=== PATIENT | female | born 1975 | race Caucasian/White ===

== ENCOUNTER 2019-01-11 09:46 | Outpatient (CLI) | payer BC ==
--- NOTE | 2019-01-11 10:51 | MMO ---
Bilateral MAMMO Bilat Diag [facility]. CLINICAL HISTORY: Patient is 43 years old and is seen for additional evaluation requested at current screening. The patient has no family history of breast cancer. The patient has no personal history of cancer. VIEWS: The views performed were: bilateral craniocaudal spot compression with tomosynthesis; bilateral mediolateral oblique spot compression with tomosynthesis; and bilateral mediolateral with tomosynthesis. FILMS COMPARED: The present examination has been compared to prior imaging studies performed at [facility] on 01/03/2019, and at [facility] [place] on 01/11/2019. This study has been interpreted with the assistance of computer-aided detection. MAMMOGRAM FINDINGS: There are scattered fibroglandular densities. Finding 1: The asymmetry seen at screening mammography does not persist at additional imaging, compatible with superimposed tissue. Finding 2: There is an oval mass measuring 8 millimeters with circumscribed margins seen in the middle region of the right breast at 12 o'clock. The mass was shown to be a cyst on ultrasound. There are no suspicious masses, suspicious calcifications, or new areas of architectural distortion. IMPRESSION: THERE IS NO MAMMOGRAPHIC EVIDENCE OF MALIGNANCY. A ROUTINE FOLLOW-UP MAMMOGRAM IN 1 YEAR IS RECOMMENDED. THE RESULTS OF THIS EXAM WERE SENT TO THE PATIENT. ACR BI-RADS Category 2 - Benign finding MAMMOGRAPHY NOTE: 1. A negative mammogram report should not delay a biopsy if a dominant of clinically suspicious mass is present. 2. Approximately 10% to 15% of breast cancers are not detected by mammography. 3. Adenosis and dense breasts may obscure an underlying neoplasm. Reported by: JEANNIE ARZOLA MD Electonically Signed: [id number]
--- NOTE | 2019-01-11 12:16 | ULT ---
LIMITED RIGHT BREAST ULTRASOUND: DATE: 01/11/19 PROVIDED CLINICAL HISTORY: Abnormal mammogram. FINDINGS: Limited sonographic interrogation performed of the right breast in the region of mammographic concern . There is a 7 mm simple cyst present at the 12 o'clock position, correlating with the mammogram find ing. No concerning sonographic findings are evident. IMPRESSION: BI-RADS Category 2 - Benign findings. Return to annual screening mammography recommended. POS: OFF
== END 2019-01-11 09:47 | disposition home or self-care (01) ==
LOC: BICMAMMO 09:46
PROVIDERS: ATTEND Obstetrics & Gynecology
DX: N63.10 Unspecified lump in the right breast, unspecified quadrant (principal)
CPT/HCPCS: 77066; G0279

== ENCOUNTER 2021-10-27 08:35 | Outpatient (CLI) | payer BC ==
[2021-10-27 10:23] LABS: #Basophils 0.1 10x3/uL (0.0-0.2); #Eosinphils 0.5 10x3/uL (0.0-0.5); #Monocytes 0.5 10x3/uL (0.0-1.1); #Neutrophils 4.5 10x3/uL (1.5-8.4); %Basophils 0.8 % (0.0-2.0); %Eosinophils 6.6 % (0.0-6.0); %Lymphocytes 25.6 % (18.0-47.0); %Monocytes 6.8 % (0.0-10.0); %Neutrophils 59.8 % (40.0-75.0); Hemoglobin 14.2 g/dL (12.0-15.5); Mean Corpuscular HGB CONC 34.3 g/dL (32.0-36.0); Mean Corpuscular Hemoglobin 30.7 pg (27.0-33.0); Mean Corpuscular Volume 89.6 fl (81.6-98.3); Mean Platelet Volume 10.1 fl (7.4-10.4); Platelet Count 301 10x3/uL (150-450); RBC Distribution Width 12.7 % (11.5-14.5); Red Blood Cell (RBC) Count 4.62 10x6/uL (3.90-5.03); White Blood Cell (WBC) Count 7.5 10x3/uL (3.5-10.5)
[2021-10-27 10:49] LABS: ALT (SGPT) 26 U/L (8-55); AST (SGOT) 22 U/L (5-34); Albumin 4.6 g/dL (3.5-5.0); Alkaline Phosphatase 93 U/L (40-110); Anion Gap 12 mmol/L (10-20); BUN (Urea Nitrogen) 7 mg/dL (7.0-18.7); Bilirubin, Direct 0.3 mg/dL (0.1-0.3); Bilirubin, Total 0.8 mg/dL (0.2-1.2); Calc. Creatinine Clearance 0 mL/min (70-130); Calcium 9.5 mg/dL (7.8-10.44); Carbon Dioxide 27 mmol/L (22-29); Chloride 103 mmol/L (98-107); Estimated GFR 98; Glucose 92 mg/dL (70-105); Potassium 4.3 mmol/L (3.5-5.1); Protein, Total 7.6 g/dL (6.0-8.3); Sodium 138 mmol/L (136-145)
== END 2021-10-27 08:36 | disposition home or self-care (01) ==
LOC: LABBT 08:35
PROVIDERS: ATTEND Surgery
DX: Z01.812 Encounter for preprocedural laboratory examination (principal); K80.20 Calculus of gallbladder without cholecystitis without obstruction; Z20.822 Contact with and (suspected) exposure to COVID-19
CPT/HCPCS: 80053; 80076; 85025; 87811

== ENCOUNTER 2021-10-31 06:14 | Day surgery (SDC) | payer BC ==
[2021-10-29 13:30] VITALS: BMI 36.0
[2021-10-31] MEDS ORDERED: fentaNYL Citrate/PF 100 MCG/2 ML SYRINGE ONE ×2 (06:23→07:59)
[2021-10-31] MEDS ORDERED: Bupivacaine/Epinephrine 0.25% 30 ML VIAL ONE (06:49)
[2021-10-31] MEDS ORDERED: Scopolamine 1.5 mg/72 hour Patch ONE (06:53)
[2021-10-31] MEDS ORDERED: Sodium Chloride 0.9% 100 ML ONE (07:50)
[2021-10-31] MEDS ORDERED: cefOXitin 2 GM VIAL ONE (07:50)
[2021-10-31] MEDS ORDERED: Ondansetron PF 4 MG/2 ML Vial ONE (08:04)
[2021-10-31] MEDS ORDERED: Neostigmine Methylsulfate 3 MG/3 ML SYRINGE ONE (08:04)
[2021-10-31] MEDS ORDERED: Glycopyrrolate 0.2 MG/ML 5 ML SYRINGE ONE (08:04)
[2021-10-31] MEDS ORDERED: PROPOFOL 200 MG/20 ML VIAL ONE (08:04)
[2021-10-31] MEDS ORDERED: Ketorolac Tromethamine 30 MG/ML VIAL ONE (08:04)
[2021-10-31] MEDS ORDERED: Dexamethasone 20 MG/5 ML VIAL ONE (08:04)
[2021-10-31] MEDS ORDERED: Lidocaine 1% PF 5 ML VIAL ONE (08:04)
[2021-10-31] MEDS ORDERED: Rocuronium Bromide 10 MG/ML (10ML VIAL) ONE (08:04)
[2021-10-31] MEDS ORDERED: Fentanyl 100 MCG/2 ML VIAL ONE (08:59)
[2021-10-31] MEDS ORDERED: HYDROcodone/Acetaminophen 5/325 mg Tablet ONE (09:43)
== END 2021-10-31 10:47 | disposition home or self-care (01) ==
LOC: SDC 06:14
PROVIDERS: ATTEND Surgery
PROC: 0FT44ZZ Resection of Gallbladder, Percutaneous Endoscopic Approach (ICD-10-PCS; principal; 2021-10-31)
DX: K80.10 Calculus of gallbladder with chronic cholecystitis without obstruction (principal); K82.8 Other specified diseases of gallbladder
CPT/HCPCS: 88304; C1713; J0694; J1100; J1885; J2405; J2704; J3010; J3490

== ENCOUNTER 2022-03-18 16:11 | Outpatient (CLI) | payer BC | END 2022-03-18 16:12 | disposition home or self-care (01) | LOC: BICRAD 16:11 | PROVIDERS: ATTEND Nurse Practitioner Family | DX: R05.9 Cough, unspecified (principal) | CPT/HCPCS: 71046 ==

== ENCOUNTER 2023-02-24 12:04 | Outpatient (CLI) | payer BC | END 2023-02-24 12:05 | disposition home or self-care (01) | LOC: BICRAD 12:04 | PROVIDERS: ATTEND Family Medicine | DX: M25.521 Pain in right elbow (principal); R07.81 Pleurodynia; S22.31XA Fracture of one rib, right side, initial encounter for closed fracture; J92.9 Pleural plaque without asbestos | CPT/HCPCS: 71046 ==